=== PATIENT | female | born 1985 | race Caucasian/White ===

== ENCOUNTER 2022-10-23 22:54 | Emergency (ER) | payer SELFPAY ==
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
[2022-10-23 23:24] VITALS: BP 127/71; PULSE 91; RESP 24; TEMP 36.6; O2SAT 98; BMI 34.7
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
[2022-10-24] MEDS: iohexoL 350 MG/ML 100 ML INFUS..BTL 85 ML IV (01:28)
== END 2022-10-24 02:56 | disposition home or self-care (01) ==
PROVIDERS: Emergency Provider Emergency Medicine
DX: Z04.1 Encounter for examination and observation following transport accident (principal); Z76.5 Malingerer [conscious simulation]
CPT/HCPCS: 70450; 71260; 72125; 74177; 99283; 99284; Q9967

== ENCOUNTER 2022-12-28 22:56 | Emergency (ER) | payer SELFPAY ==
--- NOTE | ~2022-12-28 | CT_ITS ---
Examination: CT brain and CT cervical spine without contrast. Clinical indications: Neck pain. Rule out fracture. COMPARISON: CT brain and CT cervical spine 10/24/2022. TECHNIQUE: 5 mm thin axial and reformatted 2 mm thin sagittal and coronal images of brain were obtained.. Subsequently axial 3 mm thin and reformatted 2 mm thin sagittal coronal images of cervical spine were obtained. DLP 11 17 mGy/cm. This CT examination was performed using dose optimization technique as appropriate, variously including the following: Automated exposure control Adjustment of MA and/or KV according to patient size(this includes techniques or standardized protocols for targeted exams where dose is matched to indication/reason for exam; extremities or head. Use of iterative reconstruction techniques. FINDINGS: BRAIN: There is no acute intra-axial, extra-axial bleed, masses or midline shift. There is no acute infarction in evolution. There is no edema. The raymundo to white matter differentiation is maintained normal. The lateral ventricles are symmetrical in size and configuration without enlargement. Bone windows reveal no calvarial abnormality bilateral paranasal sinuses and mastoid air cells are well-aerated and clear. CERVICAL SPINE: There is mild straightening of cervical lordosis. The vertebral heights and alignment is normal. The craniovertebral junction and C1-C2 alignment is normal. There is no visible acute fracture, dislocation or subluxation seen. There is no evidence of disc bulge, herniation or spinal stenosis the prevertebral and paravertebral soft tissues are normal. Central trachea and airways widely patent. The lung apices are clear. The prevertebral and paravertebral soft tissues are normal. CT/CT cervical spine wo IV con IMPRESSION: 1. No acute intracranial process seen. 2. Mild straightening of cervical lordosis likely spasm. No visible acute fracture, dislocation or subluxation seen.
[2022-12-28 23:03] VITALS: BP 128/92; PULSE 120; RESP 20; TEMP 36.5; O2SAT 99; BMI 36.9
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
[2022-12-29] MEDS: Acetaminophen 325 MG TABLET 975 MG PO (01:47)
--- NOTE | 2022-12-29 01:49 | PC.NURSE ---
Pt resting comfortably, ca&o, no signs of distress. Medicated per mar. will continue to monitor.
--- NOTE | 2022-12-29 02:24 | PC.NURSE ---
Pt requesting to be d/c. aware.
== END 2022-12-29 02:32 | disposition left against medical advice (07) ==
PROVIDERS: Emergency Provider Emergency Medicine Emergency Medical Services
DX: S13.9XXA Sprain of joints and ligaments of unspecified parts of neck, initial encounter (principal); S09.90XA Unspecified injury of head, initial encounter; T14.8XXA Other injury of unspecified body region, initial encounter; V48.0XXA Car driver injured in noncollision transport accident in nontraffic accident, initial encounter; F17.210 Nicotine dependence, cigarettes, uncomplicated; Y93.89 Activity, other specified; Y92.89 Other specified places as the place of occurrence of the external cause; Y99.8 Other external cause status
CPT/HCPCS: 70450; 72125; 99284